=== PATIENT | female | born 2000 | race Caucasian/White ===

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

== ENCOUNTER 2018-01-09 22:19 | Emergency (ER) | payer SELFPAY ==
[~2018-01-09] VITALS: Ht 152.4 cm; Wt 50.9 kg
[~2018-01-09 22:19] MED LIST changes: +FIORICET 50-301 EAC1 PO
[2018-01-10 00:40] LABS: SOURCE URINE
[2018-01-10 01:00] VITALS: BP 116/81
[2018-01-11 13:46] LABS: CHLAMYDIA TRACHOMATIS POSITIVE; NEISSERIA GONORRHOEAE NEGATIVE
== END 2018-01-10 01:01 | disposition home or self-care (01) ==
LOC: EME 22:19
PROVIDERS: Physician Assistant
DX: Z01.89 Encounter for other specified special examinations (principal); F17.200 Nicotine dependence, unspecified, uncomplicated
CPT/HCPCS: 81025; 87491; 87591; 99281; 99284